=== PATIENT | female | born 1995 | race Caucasian/White ===

== ENCOUNTER 2019-04-04 10:52 | Emergency (ER) | payer OTHER ==
[2019-04-04 10:56] VITALS: TEMP 98; BMI 23.0
[2019-04-04] MEDS ORDERED: SODIUM CHLORIDE 1,000 ML IV STA ×2 (11:34→12:33)
[2019-04-04] MEDS ORDERED: ONDANSETRON 4 MG/2 ML VIAL ONE (11:34)
[2019-04-04] MEDS ORDERED: ONDANSETRON 4 MG/2 ML VIAL IVPUSH ONE (11:34)
[2019-04-04] MEDS ORDERED: FAMOTIDINE 20 MG/50 ML IVPB 20 MG/50 ML MG IVPB ONE ×2 (11:34→11:35)
[2019-04-04] MEDS ORDERED: ACETAMINOPHEN INJECTION 100 ML IVPB ONE (11:34)
[2019-04-04] MEDS ORDERED: ACETAMINOPHEN 1000 MG/100 ML VIAL (NON FORMULARY) IVPB ONE (11:35)
--- NOTE | 2019-04-04 11:58 | PDOC ---
History of Present Illness - History of Present Illness Initial Comments: 04/04/19 12:08 23 year old woman with a history of celiac disease, IBS and iron anemia who presents with pressure like diffuse abdominal pain and nbnb vomiting after drinking alcohol and smoking marijuana last night. The patient reports that the abdominal pain is nonradaiting and she cannot quanitfy what makes it better or worse. She denies diarrhea or constipation. [place] fevers, dysuria, hematuria. She takes omperazole and ranitidine occaionally but did not take it today. She has no other complaints at [facility]. LNMP: 04/03/19 ROS GENERAL/CONSTITUTIONAL: No fever or chills. No weakness. HEAD, EYES, EARS, NOSE AND THROAT: No change in vision. No sore throat. CARDIOVASCULAR: No chest pain or shortness of breath RESPIRATORY: No cough, wheezing, or hemoptysis. GASTROINTESTINAL: + nausea, vomiting, No diarrhea or constipation. GENITOURINARY: No dysuria, frequency, or change in urination. MUSCULOSKELETAL: No joint or muscle swelling or pain. No neck or back pain. SKIN: No rash PE GENERAL: Awake, alert, and fully oriented, in no acute distress HEAD: No signs of trauma, normocephalic, atraumatic EYES: EOMI, sclera anicteric, conjunctiva clear ENT: oropharynx clear without exudates. Moist mucosa NECK: Normal ROM, supple LUNGS: No distress, speaks full sentences, clear to auscultation bilaterally HEART: Regular rate and rhythm, normal S1 and S2, no murmurs, rubs or gallops, peripheral pulses normal and equal bilaterally. ABDOMEN: Soft, nontender, No guarding, no rebound. No masses BACK: No CVA tenderness EXTREMITIES : Normal inspection, Normal range of motion, no edema. No clubbing or cyanosis. NEUROLOGICAL: Cranial nerves II through XII grossly intact. Normal speech, normal gait, no focal sensorimotor deficits SKIN: Warm, Dry, normal turgor, no rashes or lesions noted MDM DDX including but not limited to: Veisalgia vs gastroenteritis vs pancreatitis vs cyclic vomtiing W/U: - lipase, cbc, cmp, preg TX: - tylenol, zofran, ivf ED Course: haldol dosed for cyclic vomiting concern reassess po trial successful Melida Shannon, PGY2 Emergency Medicine <Melida Shannon - Last Filed: 04/04/19 15:20> <Michael Kam - Last Filed: 04/04/19 15:32> - General Chief Complaint: Pain Stated Complaint: ABD PAIN Time Seen by Provider: 04/04/19 11:58 Past History - Past Medical History Anemia: Yes COPD: No Other medical history: CELIAC DIS - Suicide/Smoking/Psychosocial Hx Smoking History: Never smoked Information on smoking cessation initiated: No Hx Alcohol Use: Yes Drug/Substance Use Hx: No <Melida Shannon - Last Filed: 04/04/19 15:20> <Michael Kam - Last Filed: 04/04/19 15:32> - Past Medical History Allergies/Adverse Reactions: Allergies Allergy/AdvReac Type Severity Reaction Status Date / Time No Known Allergies Allergy Verified 04/04/19 10:56 Home Medications: Ambulatory Orders Luxora Carbonate [Eskalith -] 600 mg PO BID 04/04/19 Sertraline HCl [Zoloft] 150 mg PO DAILY 04/04/19 *Physical Exam - Vital Signs Last Vital Signs Temp Pulse Resp BP Pulse Ox 98 F 93 H 19 118/89 97 04/04/19 10:53 04/04/19 10:53 04/04/19 10:53 04/04/19 10:53 04/04/19 10:53 <Melida Shannon - Last Filed: 04/04/19 15:20> - Vital Signs Last Vital Signs Temp Pulse Resp BP Pulse Ox 98 F 66 18 94/43 L 100 04/04/19 14:51 04/04/19 14:51 04/04/19 14:51 04/04/19 14:51 04/04/19 14:51 <Michael Kam - Last Filed: 04/04/19 15:32> ED Treatment Course - LABORATORY CBC & Chemistry Diagram: 04/04/19 11:52 04/04/19 11:52 - Medications Given in the ED: ED Medications Discontinued Medications Generic Name Dose Route Start Last Admin Trade Name Freq PRN Reason Stop Dose Admin Acetaminophen 1,000 mg 04/04/19 11:35 04/04/19 11:45 Ofirmev Injection - IVPB 04/04/19 11:36 1,000 mg ONCE ONE Administration Ondansetron HCl 4 mg 04/04/19 11:34 04/04/19 11:45 Zofran Injection IVPUSH 04/04/19 11:35 4 mg ONCE ONE Administration <Melida Shannon - Last Filed: 04/04/19 15:20> - LABORATORY CBC & Chemistry Diagram: 04/04/19 11:52 04/04/19 11:52 - ADDITIONAL ORDERS Additional order review: Laboratory Results 04/04/19 04/04/19 04/04/19 13:00 13:00 11:52 Sodium 142 Potassium 4.1 Chloride 111 H Carbon Dioxide 22 Anion Gap 8 BUN 7.8 Creatinine 0.8 Est GFR (CKD-EPI)AfAm 121.29 Est GFR (CKD-EPI)NonAf 104.65 Random Glucose 121 H Calcium 9.7 Magnesium 2.1 Total Bilirubin 0.1 L AST 25 ALT 21 Alkaline Phosphatase 77 Total Protein 7.6 Albumin 4.3 Lipase 116 Urine Color Yellow Urine Appearance Clear Urine pH 8.0 Ur Specific [place] 1.005 L Urine Protein Negative Urine Glucose (UA) Negative Urine Ketones Negative Urine Blood Negative Urine Nitrite Negative Urine Bilirubin Negative Urine Urobilinogen 0.2 Ur Leukocyte Esterase Negative Urine HCG, Qual Negative 04/04/19 11:52 RBC 4.69 MCV 74.3 L MCHC 32.4 RDW 17.5 H MPV 8.3 Neutrophils % 82.6 Lymphocytes % 12.4 Monocytes % 4.1 Eosinophils % 0.2 Basophils % 0.7 - Medications Given in the ED: ED Medications Discontinued Medications Generic Name Dose Route Start Last Admin Trade Name Brittani PRN Reason Stop Dose Admin Acetaminophen 1,000 mg 04/04/19 11:35 04/04/19 11:45 Ofirmev Injection - IVPB 04/04/19 11:36 1,000 mg ONCE ONE Administration Haloperidol 2 mg 04/04/19 13:50 04/04/19 14:28 Haldol Injection (Fast Acting) - IM 04/04/19 13:51 2 mg NOW ONE Administration Famotidine/Sodium Chloride 20 mg in 50 mls @ 100 mls/hr 04/04/19 11:35 11:45 Pepcid 20 Mg Premixed Ivpb - IVPB 04/04/19 12:04 100 mls/hr ONCE ONE Administration Sodium Chloride 1,000 mls @ 1,000 mls/hr 04/04/19 11:34 04/04/19 11:43 Normal Saline - IV 04/04/19 12:33 1,000 mls/hr ASDIR STA Administration Sodium Chloride 1,000 mls @ 1,000 mls/hr 04/04/19 12:33 04/04/19 12:50 Normal Saline - IV 04/04/19 13:32 1,000 mls/hr ASDIR STA Administration Ondansetron HCl 4 mg 04/04/19 11:34 04/04/19 11:45 Zofran Injection IVPUSH 04/04/19 11:35 4 mg ONCE ONE Administration <Michael Kam - Last Filed: 04/04/19 15:32> *DC/Admit/Observation/Transfer - Discharge Dispostion Decision to Admit order: No <Melida Shannon - Last Filed: 04/04/19 15:20> <Michael Kam - Last Filed: 04/04/19 15:32> Diagnosis at time of Disposition: Vomiting, Abdominal pain, Nausea - Discharge Dispostion Disposition: HOME Condition at time of disposition: Stable - Referrals Referrals: Cristina Kendrick DO [Primary Care Provider] - - Patient Instructions Printed Discharge Instructions: DI for Cyclic Vomiting Syndrome-Child Additional Instructions: You were seen in the ED for complaints of vomiting and abdominal pain In the ED you were evaluated with labwork. Your results were unremarkable and you had symptom relief with medication There does not appear to be an acute need for immediate hospitalization. You are advised to follow up with your Primary Care Physician and GI within 1 week as scheduled. Return to the ED immediately if you experience worsening abdominal pain, nausea , vomiting or fever. - Post Discharge Activity
[2019-04-04 12:04] LABS: BASO % 0.7 % (0-2.0); EOS % 0.2 % (0-4.5); HEMATOCRIT 34.9 % (32.4-45.2); HEMOGLOBIN 11.3 GM/dL (10.7-15.3); LYMPH % 12.4 % (8-40); MCH 24.1 pg (25.7-33.7); MCHC 32.4 g/dl (32.0-36.0); MEAN CELL VOLUME 74.3 fl (80-96); MEAN PLT VOLUME 8.3 fl (7.5-11.1); MONO % 4.1 % (3.8-10.2); NEUT % 82.6 % (42.8-82.8); PLATELET COUNT 313 K/MM3 (134-434); RBC 4.69 M/mm3 (3.60-5.2); RDW 17.5 % (11.6-15.6); WHITE BLOOD COUNT 4.7 K/mm3 (4.0-10.0)
--- NOTE | 2019-04-04 12:22 | PDOC ---
Attending Attestation - Resident Resident Name: Melida Shannon - ED Attending Attestation I have performed the following: I have examined & evaluated the patient, The case was reviewed & discussed with the resident, I agree w/resident's findings & plan, Exceptions are as noted - HPI HPI: 04/04/19 12:20 23yo F hx celiaic disease, IBS, iron def anemia presents to the ED with upper abdominal discomfort a/w vomiting. Pt reports she was well last night, had 2 alcoholic drinks last night, also smoked marijuana. This morning, she woke up with diffuse upper abdominal pain a/w vomiting x5. Vomiting was NBNB. Denies fevers, chills, diarrhea. Pt reports similar episodes of pain in the past, she typically goes to [place] and states her symptoms improve with fluids, morphine, pepcid, and zofran. No treatments tried but states that she has ranitidine and omeprazole at home for similar sxs. LMP yesterday. No previous surgeries on abd. Last BM today. Denies headache, dizziness, focal weakness/numbness, cp, sob, LE edema, urinary sxs - Physicial Exam PE: 04/04/19 12:50 GENERAL: Awake, alert, and fully oriented, in no acute distress HEAD: No signs of trauma EYES: PERRLA, EOMI, sclera anicteric, conjunctiva clear ENT: Oropharynx clear without exudates. Moist mucosa NECK: Normal ROM, supple, no lymphadenopathy, JVD, or masses LUNGS: Breath sounds equal, clear to auscultation bilaterally. No wheezes, and no crackles HEART: Regular rate and rhythm, normal S1 and S2, no murmurs, rubs or gallops ABDOMEN: Soft, nontender, normoactive bowel sounds. No guarding, no rebound. No masses. NEgative murphys sign. EXTREMITIES: Normal range of motion, no edema. No cords, erythema, or tenderness NEUROLOGICAL: Normal speech, cranial nerves intact, equal strength and sensation b/l SKIN: +multiple linear 1-2 cm well healed scars to dorsal forearm - Medical Decision Making 04/04/19 12:48 23yo F hx celiacs, IBS, iron def anemia prsents to the ED with upper abdominal pain a/w vomiting Vitals unremarkable Exam with minimal epigastric ttp DDx includes gastritis vs pancreatitis vs cannabinoid hyperemesis syndrome vs celiacs flare (although unlikely w no diarrhea) Plan: -labs -UPT -UA -symptomatic treatemtn Will hold off on imaging for now given benign abd exam, and previous episodes of similar pain 04/04/19 14:13 Pt given IV haldol while on cardiac technologist for continued nausea Will reassess 04/04/19 15:00 Pt feeling better Drank water Still a bit sleepy, family at bedside Will reassess 04/04/19 15:22 Pt feeling a lot better Tolerating PO Requests DC home Has f/u this week with GI She is well appearing, clinically stable for DC home I discussed the physical exam findings, ancillary test results and final diagnoses with the patient. I answered all of the patient's questions. The patient was satisfied with the care received and felt comfortable with the discharge plan and treatment plan. The patient will call their primary care physician within 24 hours to arrange follow-up and will return to the Emergency Department with any new, persistent or worsening symptoms. Heart Score/ECG Review #1 04/04/19 15:12 EKG read and int by me: NSR, rate 67. Normal axis. Wavy baseline but in more clear leads, QTC appears wnl
[2019-04-04 12:24] LABS: ALBUMIN 4.3 g/dl (3.4-5.0); BILIRUBIN,TOTAL 0.1 mg/dL (0.2-1); BLOOD UREA NITROGEN 7.8 mg/dL (7-18); CALCIUM 9.7 mg/dL (8.5-10.1); CREATININE 0.8 mg/dL (0.55-1.3); MAGNESIUM 2.1 mg/dL (1.8-2.4); POTASSIUM 4.1 mmol/L (3.5-5.1); TOT PROT 7.6 g/dl (6.4-8.2)
[2019-04-04 13:31] LABS: URINE APPEARANCE CLEAR; URINE BILIRUBIN NEGATIVE (NEGATIVE); URINE COLOR YELLOW; URINE GLUCOSE (UA) NEGATIVE (NEGATIVE); URINE KETONE NEGATIVE (NEGATIVE); URINE LEUK ESTERASE NEGATIVE (NEGATIVE); URINE NITRITE NEGATIVE (NEGATIVE); URINE PROTEIN NEGATIVE (NEGATIVE); URINE UROBILINOGEN 0.2 mg/dL (0.2-1.0)
[2019-04-04] MEDS ORDERED: HALOPERIDOL LACTATE 5 MG/ML IM ONE (13:50)
[2019-04-04] MEDS ORDERED: HALOPERIDOL LACTATE 5 MG/ML ONE (13:56)
[2019-04-04 14:52] VITALS: PULSE 66
[2019-04-04 15:55] VITALS: BP 108/56
--- NOTE | 2019-04-04 16:29 | EKG ---
Test Reason : Blood Pressure : / mmHG Vent. Rate : 067 BPM Atrial Rate : 067 BPM P-R Int : 132 ms QRS Dur : 092 ms QT Int : 428 ms P-R-T Axes : 059 077 033 degrees QTc Int : 452 ms NORMAL SINUS RHYTHM WITH SINUS ARRHYTHMIA NORMAL ECG NO PREVIOUS ECGS AVAILABLE Confirmed by MD ALCIDES, LUCIANA ([id number]) on 04/04/2019 4:28:59 PM Referred By: Confirmed By:LUCIANA MCGRATH MD
== END 2019-04-04 15:55 | disposition home or self-care (01) ==
LOC: JER 10:52 → EDBD 10:52 → JER 15:55
PROC: 3E023NZ Introduction of Analgesics, Hypnotics, Sedatives into Muscle, Percutaneous Approach (ICD-10-PCS; principal; 2019-04-04)
PROC: 3E033GC Introduction of Other Therapeutic Substance into Peripheral Vein, Percutaneous Approach (ICD-10-PCS; 2019-04-04)
PROC: 3E0337Z Introduction of Electrolytic and Water Balance Substance into Peripheral Vein, Percutaneous Approach (ICD-10-PCS; 2019-04-04)
PROC: 3E033GC Introduction of Other Therapeutic Substance into Peripheral Vein, Percutaneous Approach (ICD-10-PCS; 2019-04-04)
PROC: 3E033NZ Introduction of Analgesics, Hypnotics, Sedatives into Peripheral Vein, Percutaneous Approach (ICD-10-PCS; 2019-04-04)
DX: G43.A0 Cyclical vomiting, in migraine, not intractable (principal)
CPT/HCPCS: 36415; 80053; 81003; 83690; 83735; 84703; 85025; 87086; 93005; 93010; 96361; 96365; 96372; 96375; 99285-25; J0131; J7030